=== PATIENT | male | born 1980 | race Caucasian/White ===

== ENCOUNTER → 2025-03-15 08:48 | Outpatient (BNVA) | payer SELFPAY | PROVIDERS: PCP Nurse Practitioner Family; Visit Provider Dermatology | DX: Z01.89 Encounter for other specified special examinations (principal) | CPT/HCPCS: 83721 ==

== ENCOUNTER 2025-06-10 14:52 | Outpatient (CLI) | payer SELFPAY ==
--- NOTE | 2025-06-10 15:01 | US_ITS ---
WS: [id number] TESTICULAR ULTRASOUND HISTORY: TESTICULAR ABSCESS COMPARISON: 03/27/2023 TECHNIQUE: Real-time and color Doppler imaging utilized to perform a testicular ultrasound. Significant RIGHT scrotal wall thickening. Along the lateral scrotal wall there is a complex collection with increased vascularity. The entire collection measures 3.3 x 2.4 x 3.6 cm and is most consistent with a phlegmon and developing abscess. The farris are not well formed at this time. There is a large amount of edema. Right testicle: 4.8 cm x 2.9 cm x 2.7 cm. Normal size and echogenicity. No mass or torsion. Normal color Doppler is present throughout. Systolic and diastolic velocities are both present. No significant hydrocele. Right epididymis: Normal epididymis with no increased vascularity. Left testicle: 4.4 cm x 3.2 cm x 2.7 cm. Normal size and echogenicity. No mass or torsion. Normal color Doppler is present throughout. Systolic and diastolic velocities are both present. No significant hydrocele. Left epididymis: Normal epididymis with no increased vascularity. Note: Patient is on antibiotics for scrotal abscess. Patient follow-up with primary care. If testicular abscess progresses over the weekend patient is instructed to go to the emergency department. US/US scrotum [id number] IMPRESSION: 1. Large RIGHT scrotal wall phlegmon/developing abscess measuring 3.3 x 2.4 x 3.6 cm. 2. Large amount of edema and scrotal wall thickening. No soft tissue air. 3. No testicular mass or torsion.
== END 2025-06-10 14:53 | disposition home or self-care (01) ==
LOC: RAD 14:55
PROVIDERS: PCP Nurse Practitioner Family; Visit Provider Nurse Practitioner Family
DX: N45.4 Abscess of epididymis or testis (principal)
CPT/HCPCS: 76870